=== PATIENT | male | born 1955 | race African-American/Black ===

== ENCOUNTER 2020-01-31 13:57 | Inpatient (IN) | payer MEDICARE, MEDICAID ==
[~2020-01-31] VITALS: Ht 182.9 cm; Wt 71.2 kg
[2020-01-31] MEDS ORDERED: ASPIRIN 81MG TABLET PO ONE (14:15)
[2020-01-31] MEDS ORDERED: SODIUM CHLORIDE 0.9% 1,000 ML IV ONE (14:15)
[2020-01-31 14:53] LABS: BASOPHILS % 0.7 % (0.0-2.0); EOSINOPHILS % 8.5 % (0.0-5.0); HEMATOCRIT. 29.5 % (42.0-52.0); HEMOGLOBIN. 9.7 g/dL (14.0-18.0); LYMPHOCYTES % 34.1 % (20.0-50.0); MEAN CORPUSCULAR HEMOGLOBIN 26.9 pg (28.0-32.0); MEAN CORPUSCULAR VOLUME 82.1 fL (80.0-94.0); MEAN PLATELET VOLUME 7.9 fl (7.4-10.4); MONOCYTES % 12.8 % (2.0-8.0); NEUTROPHILS % 43.9 % (40.0-76.0); PLATELET 225 x1000/uL (130-400); RED BLOOD CELL COUNT 3.59 mill/uL (4.7-6.1); RED CELL DISTRIBUTION WIDTH 16.7 % (11.6-14.6)
[2020-01-31 14:58] LABS: CHLORIDE 102 mEq/L (98-107)
[2020-01-31] MEDS ORDERED: ONDANSETRON HCL 4MG/2ML INJ IV PRN (19:00)
[2020-01-31] MEDS ORDERED: DOCUSATE SODIUM 100MG CAPSULE PO PRN (19:00)
[2020-01-31] MEDS ORDERED: CLONIDINE 0.1MG TABLET PO PRN (19:00)
[2020-01-31] MEDS ORDERED: MAGNESIUM/ALUMINUM HYDROXIDE/SIMETHICONE 30ML UDC PO PRN (19:00)
[2020-01-31] MEDS ORDERED: GUAIFENESIN 200MG/10ML SUGAR FREE UDC PO PRN (19:00)
[2020-01-31] MEDS: SODIUM CHLORIDE 0.9% 1,000 ML IV SCH (19:55)
[2020-01-31] MEDS: ENOXAPARIN 40MG/0.4ML SYR SUBCUT SCH (20:27)
[2020-01-31 21:30] VITALS: BP 140/74
[2020-02-01] VITALS: BP 148/72
[2020-02-01 00:36] LABS: CREATINE KINASE 99 IU/L (39-308)
[2020-02-01] MEDS ORDERED: MELA3TAB71 MT (01:07)
[2020-02-01] MEDS ORDERED: DAPT500V IV (01:07)
[2020-02-01] MEDS ORDERED: THIA100T88 MT (01:07)
[2020-02-01] MEDS ORDERED: MOM MT (01:07)
[2020-02-01] MEDS ORDERED: METF-815 MT (01:07)
[2020-02-01] MEDS ORDERED: MULT-1146 MT (01:07)
[2020-02-01] MEDS ORDERED: IBUP-2029 MT (01:07)
[2020-02-01] MEDS ORDERED: ACET650T37 MT (01:07)
[2020-02-01] MEDS ORDERED: INSU100V34 SQ (01:07)
[2020-02-01] MEDS ORDERED: BISA10SU62 RC (01:07)
[2020-02-01] MEDS ORDERED: FAMO20TA8 MT (01:07)
[2020-02-01] MEDS ORDERED: INSU100I24 SQ (01:07)
[2020-02-01] MEDS ORDERED: ASCO500C18 MT (01:07)
[2020-02-01] MEDS ORDERED: GLIP2.5T3 MT (01:07)
[2020-02-01 04:00] VITALS: BP 117/72
[2020-02-01] MEDS ORDERED: PNEUMOCOCCAL 23-VAL P-SAC VAC 0.5 ML IM ONE (06:00)
[2020-02-01 06:27] LABS: CHLORIDE 99 mEq/L (98-107)
[2020-02-01 06:50] LABS: CREATINE KINASE 98 IU/L (39-308)
[2020-02-01 06:58] LABS: BASOPHILS % 0.7 % (0.0-2.0); EOSINOPHILS % 8.8 % (0.0-5.0); HEMATOCRIT. 29.8 % (42.0-52.0); HEMOGLOBIN. 9.7 g/dL (14.0-18.0); LYMPHOCYTES % 39.3 % (20.0-50.0); MEAN CORPUSCULAR HEMOGLOBIN 27.1 pg (28.0-32.0); MEAN CORPUSCULAR VOLUME 83.1 fL (80.0-94.0); MEAN PLATELET VOLUME 8.3 fl (7.4-10.4); MONOCYTES % 10.2 % (2.0-8.0); PLATELET 197 x1000/uL (130-400); RED BLOOD CELL COUNT 3.59 mill/uL (4.7-6.1); RED CELL DISTRIBUTION WIDTH 16.8 % (11.6-14.6)
[2020-02-01] MEDS ORDERED: INSULIN LISPRO 100 UNITS/ML SUBCUT SCH (07:00)
[2020-02-01] MEDS ORDERED: DEXTROSE 50% WATER 50ML SYRINGE IV PRN (07:00)
[2020-02-01 08:00] VITALS: BP 132/78
[2020-02-01] MEDS: METOPROLOL TARTRATE 25MG TABLET PO SCH ×2 (08:57→21:35)
[2020-02-01] MEDS ORDERED: BISACODYL 10MG SUPP RC PRN (11:00)
[2020-02-01] MEDS: BLOOD SUGAR DIAGNOSTIC STRIP TEST SCH ×3 (11:48→21:33)
[2020-02-01] MEDS: SODIUM CHLORIDE 0.9% 1,000 ML IV SCH (11:49)
[2020-02-01] MEDS: INSULIN LISPRO 100 UNITS/ML SUBCUT SCH ×4 (11:51→22:22)
[2020-02-01 12:00] VITALS: BP 115/76
[2020-02-01 12:30] LABS: CLARITY URINE CLEAR (CLEAR); COLOR URINE YELLOW (YELLOW); KETONES URINE NEGATIVE (NEGATIVE); LEUKOCYTE ESTERASE URINE NEGATIVE (NEGATIVE); NITRITE URINE NEGATIVE (NEGATIVE); OCCULT BLOOD URINE NEGATIVE (NEGATIVE); PH URINE 5.5 (4.5-8.0); PROTEIN URINE NEGATIVE (NEGATIVE); SPECIFIC GRAVITY URINE 1.028 (1.005-1.030); UROBILINOGEN URINE 0.2 E.U./dL (0.2-1.0)
[2020-02-01 16:00] VITALS: BP 105/60
[2020-02-01] MEDS: GLIPIZIDE XL 2.5MG TABLET PO SCH (16:36)
[2020-02-01] MEDS: METFORMIN HCL 500MG TABLET PO SCH (16:37)
[2020-02-01 20:00] VITALS: BP 121/74
[2020-02-01] MEDS: ASCORBIC ACID 500 MG TABLET PO SCH (21:34)
[2020-02-01] MEDS: ENOXAPARIN 40MG/0.4ML SYR SUBCUT SCH (21:35)
[2020-02-01] MEDS: INSULIN GLARGINE UD 100 UNITS/ML SYR SUBCUT SCH (23:07)
[2020-02-02] VITALS: BP 115/70
[2020-02-02 04:00] VITALS: BP 106/58
[2020-02-02] MEDS: SODIUM CHLORIDE 0.9% 1,000 ML IV SCH ×3 (05:38→21:29)
[2020-02-02] MEDS: BLOOD SUGAR DIAGNOSTIC STRIP TEST SCH ×4 (06:51→21:26)
[2020-02-02] MEDS: INSULIN LISPRO 100 UNITS/ML SUBCUT SCH ×4 (06:51→21:00)
[2020-02-02 08:00] VITALS: BP 131/70
[2020-02-02] MEDS: METFORMIN HCL 500MG TABLET PO SCH ×2 (08:36→18:06)
[2020-02-02] MEDS: GLIPIZIDE XL 2.5MG TABLET PO SCH ×2 (08:36→18:06)
[2020-02-02] MEDS: METOPROLOL TARTRATE 25MG TABLET PO SCH ×2 (08:36→21:00)
[2020-02-02] MEDS: ASCORBIC ACID 500 MG TABLET PO SCH ×2 (09:00→21:26)
[2020-02-02 12:00] VITALS: BP 135/67
[2020-02-02 16:00] VITALS: BP 117/66
[2020-02-02 20:00] VITALS: BP 114/53
[2020-02-02] MEDS: ENOXAPARIN 40MG/0.4ML SYR SUBCUT SCH (21:27)
[2020-02-02] MEDS: INSULIN GLARGINE UD 100 UNITS/ML SYR SUBCUT SCH (22:48)
[2020-02-03] VITALS (7 sets, daily range): BP systolic 104–142; BP diastolic 58–78
[2020-02-03] MEDS: INSULIN LISPRO 100 UNITS/ML SUBCUT SCH ×4 (06:25→21:00)
[2020-02-03] MEDS: BLOOD SUGAR DIAGNOSTIC STRIP TEST SCH ×4 (06:25→21:00)
[2020-02-03] MEDS: GLIPIZIDE XL 2.5MG TABLET PO SCH ×2 (09:42→17:05)
[2020-02-03] MEDS: METOPROLOL TARTRATE 25MG TABLET PO SCH ×2 (09:43→20:55)
[2020-02-03] MEDS: METFORMIN HCL 500MG TABLET PO SCH ×2 (09:43→17:04)
[2020-02-03] MEDS: ASCORBIC ACID 500 MG TABLET PO SCH ×2 (09:43→20:55)
[2020-02-03] MEDS: ACETAMINOPHEN 325MG TABLET PO PRN ×2 (11:18→20:55)
[2020-02-03] MEDS: SODIUM CHLORIDE 0.9% 1,000 ML IV SCH (15:28)
[2020-02-03] MEDS: ENOXAPARIN 40MG/0.4ML SYR SUBCUT SCH (20:56)
[2020-02-03] MEDS: INSULIN GLARGINE UD 100 UNITS/ML SYR SUBCUT SCH (21:02)
[2020-02-04] VITALS: BP 101/52
[2020-02-04 04:00] VITALS: BP 158/70
[2020-02-04] MEDS: BLOOD SUGAR DIAGNOSTIC STRIP TEST SCH ×3 (06:08→16:31)
[2020-02-04] MEDS: INSULIN LISPRO 100 UNITS/ML SUBCUT SCH ×3 (06:56→16:31)
[2020-02-04 08:00] VITALS: BP 153/91
[2020-02-04] MEDS: METFORMIN HCL 500MG TABLET PO SCH ×2 (08:30→16:32)
[2020-02-04] MEDS: GLIPIZIDE XL 2.5MG TABLET PO SCH ×2 (08:31→16:31)
[2020-02-04] MEDS: ASCORBIC ACID 500 MG TABLET PO SCH (08:31)
[2020-02-04] MEDS: METOPROLOL TARTRATE 25MG TABLET PO SCH (08:31)
[2020-02-04 12:00] VITALS: BP 129/77
[2020-02-04 15:32] VITALS: BP 129/77
[2020-02-04 16:00] VITALS: BP 125/68
[2020-02-04] MEDS ORDERED: INSULIN GLARGINE UD 100 UNITS/ML SYR SUBCUT SCH (22:00)
== END 2020-02-04 16:57 | DRG 73 ==
LOC: ER 13:57 → 5WST 18:08 → EDBEDREQTM 18:15 → EDBEDREQ 18:15 → ENRESERV 20:28
PROVIDERS: ADMIT Hospitalist; ATTEND Hospitalist
DX: G90.8 Other disorders of autonomic nervous system (principal); L89.623 Pressure ulcer of left heel, stage 3; L89.613 Pressure ulcer of right heel, stage 3; N17.9 Acute kidney failure, unspecified; J44.9 Chronic obstructive pulmonary disease, unspecified; I10 Essential (primary) hypertension; Z20.828 Contact with and (suspected) exposure to other viral communicable diseases; L85.3 Xerosis cutis; E11.649 Type 2 diabetes mellitus with hypoglycemia without coma; E78.00 Pure hypercholesterolemia, unspecified; Z87.891 Personal history of nicotine dependence; Z86.73 Personal history of transient ischemic attack (TIA), and cerebral infarction without residual deficits; Z89.421 Acquired absence of other right toe(s)
CPT/HCPCS: 36415; 71045; 80053; 81003; 82550; 82962; 83036; 83880; 84439; 84443; 84484; 85025; 87426; 90732; 93005; 93306; 93970; 96372; 99285; J1650; J1815; J7030